=== PATIENT | female | born 1935 | race African-American/Black ===

== ENCOUNTER 2018-05-03 05:34 | Inpatient (IN) | payer OTHER ==
[~2018-05-03] VITALS: Ht 167.6 cm; Wt 70.8 kg
--- NOTE | 2018-05-03 05:36 | ED DYSPNEA/ASTHMA COMPLAINT ---
History of Present Illness General Chief Complaint: Dyspnea (COPD, CHF, Other) Stated Complaint: DYSPNEA Source: patient Exam Limitations: no limitations Vital Signs & Intake/Output Vital Signs & Intake/Output Vital Signs Date Time Temp Pulse Resp B/P B/P Pulse O2 O2 Flow FiO2 Mean Ox Delivery Rate 05/03 1108 Nasal 1.0L Cannula 05/03 926 95 Nasal 1.0L Cannula 05/03 0926 97.9 66 18 110/74 95 Nasal 1.0L Cannula 05/03 0839 97.4 64 18 121/75 95 Nasal 1.0L Cannula 05/03 0601 97 05/03 0555 96 05/03 0545 96 Room Air 05/03 0540 97.6 65 22 139/83 96 Room Air Allergies Coded Allergies: Penicillins (HIVES PER PT 05/03/18) Triage Nurses Notes Reviewed? yes Onset: Gradual Duration: hour(s): Timing: recent history Severity: moderate Activities at Onset: rest, sleep Prior Episodes/Possible Cause: occasional episodes Associated Symptoms: cough, wheezing HPI: 82-year-old woman history of COPD presents with coughing wheezing and dyspnea for the past 1-2 days. She states that she states saw her PMD who started her on steroid yesterday. However, during the day she continued to have dyspnea and shortness of breath. She notes that her cough is productive of sputum. She is unable to ambulate at home without wheezing. Her pmd started her on steroids yesterday. She has no chest pain, dizziness, diaphresis. 911 called. She felt better after a neb. (Lizeth ROSA,Sarthak Appiah) Past History Travel History Traveled to [place] past 21 day No Medical History Any Pertinent Medical History? see below for history Cardiovascular: hypertension Respiratory: asthma, COPD Surgical History Surgical History: unobtainable Family History Hx Contributory? No (Lizeth ROSA,Sarthak Appiah) Review of Systems Review of Systems Constitutional: Reports: no symptoms. EENTM: Reports: no symptoms. Respiratory: Reports: no symptoms. Cardiovascular: Reports: no symptoms. GI: Reports: no symptoms. Genitourinary: Reports: no symptoms. Musculoskeletal: Reports: no symptoms. Skin: Reports: no symptoms. Neurological/Psychological: Reports: no symptoms. Hematologic/Endocrine: Reports: no symptoms. Immunologic/Allergic: Reports: no symptoms. All Other Systems: Reviewed and Negative (Lizeth ROSA,Sarthak Appiah) Physical Exam Physical Exam General Appearance: moderate distress Head: atraumatic, normal appearance Eyes: Bilateral: normal appearance. Ears, Nose, Throat: normal pharynx, normal ENT inspection Neck: normal inspection, supple, full range of motion Respiratory: accessory muscle use, wheezing, respiratory distress Cardiovascular: regular rate/rhythm Gastrointestinal: normal bowel sounds, soft, non-tender, no organomegaly Extremities: normal inspection, normal capillary refill, normal range of motion, no edema Neurologic/Psych: no motor/sensory deficits, awake, alert, oriented x 3 Skin: intact, normal color, warm/dry Core Measures ACS in differential dx? No CVA/TIA Diagnosis No Sepsis Present: No Sepsis Focused Exam Completed? No (Lizeth ROSA,Sarthak Appiah) Progress Differential Diagnosis: asthma, AMI, bronchitis, costochondritis, CHF Plan of Care: Orders Procedure Date/time Status CBC WITHOUT DIFFERENTIAL 05/04 600 Active BASIC ELECTROLYTES PLUS BUN&CR 05/04 600 Active Regular Diet 05/03 B Active RT: Evaluation 05/03 1059 Active Pathway - chart 05/03 926 Active Code Status 05/03 09 Active Weight 05/03 0924 Complete Vital Signs 05/03 09 Active Teach/Educate 05/03 09 Active Pain Treatment and Response 05/03 09 Active Nutritional Intake, Monitor 05/03 09 Active Isolation 05/03 0924 Active Intake & Output 05/03 0924 Active Patient Care Conference 05/03 0924 Active Activity/Ambulation 05/03 0924 Active Patient Data 05/03 0753 Active OXYGEN SETUP (GEN) 05/03 730 Active Saline Lock 05/03 730 Active Admit to inpatient 05/03 07 Active Vital Signs 05/03 730 Active Activity/Ambulation 05/03 07 Active Code Status 05/03 07 Complete Intake & Output 05/03 0541 Active BLOOD CULTURE 05/03 0540 Active TROPONIN LEVEL 05/03 05 Complete LIPASE 05/03 536 Complete HEPATIC FUNCTION PANEL 05/03 536 Complete D-DIMER 05/03 05 Complete CBC WITHOUT DIFFERENTIAL 05/03 536 Complete BASIC METABOLIC PANEL 05/03 536 Complete AMYLASE 05/03 05 Complete EKG 05/03 05 Active TRC EVALUATION (GEN) 05/03 UNK Complete THERAPIST ORDERS 05/03 UNK Complete OXYGEN SETUP (GEN) 05/03 UNK Complete VTE Mechanical Prophylaxis 05/03 UNK Active Current Medications Sig/Gaby Start time Last Medication Dose Stop Time Status Admin Azithromycin 500 MG DAILY 05/04 900 AC (Zithromax) 05/05 959 Sodium Chloride 250 ML (Normal Saline 0.9%) Methylprednisolone 40 MG Q8 05/04 0600 AC (Solumedrol) Heparin Sodium 5,000 UNIT Q8 05/03 1400 AC (Porcine) Albuterol Sulfate 3 ML EVERY 4 HRS/AWAKE 05/03 1200 AC 05/03 (Proventil) 1107 Ipratropium [place] 2.5 ML EVERY 4 HRS/AWAKE 05/03 1200 AC 05/03 (Atrovent) 1107 Acetaminophen 650 MG Q8P PRN 05/03 0930 AC (Tylenol) Laboratory Tests 05/03/18551: Anion Gap 13, Estimated GFR 43 L, BUN/Creatinine Ratio 20.8, Glucose 104 H, Calcium 10.3 H, Total Bilirubin 0.3, Direct Bilirubin 0.2, AST 25, ALT 26, Alkaline Phosphatase 88, Troponin I < 0.01, Total Protein 7.2, Albumin 4.1, Amylase 82, Lipase 35, D-Dimer High Sensitivty 251 H, CBC w Diff NO MAN DIFF REQ, RBC 4.03 L, MCV 93.7, MCH 31.0, MCHC 33.0, RDW 14.7 H, MPV 9.2, Gran % 54.7, Lymphocytes % 27.5, Monocytes % 10.7 H, Eosinophils % 6.7 H, Basophils % 0.4, Absolute Granulocytes 2.2, Absolute Lymphocytes 1.1 L, Absolute Monocytes 0.4, Absolute Eosinophils 0.3, Absolute Basophils 0 Microbiology 05/03 552 BLOOD: Blood Culture - RECD 05/03 545 BLOOD: Blood Culture - RECD Diagnostic Imaging: Viewed by Me: Radiology Read. Discussed w/RAD: Radiology Read. CXR Impression: PATIENT: REJI HUGO PRESENT AGE: 82 PATIENT ACCOUNT NO: [id number] : 37 LOCATION: [facility] ORDERING PHYSICIAN: Sarthak Stanley MD SERVICE DATE: 05/03/18 EXAM TYPE: RAD - XRY- PORTABLE CHEST XRAY EXAMINATION: XR PORTABLE CHEST CLINICAL INFORMATION: Chest pain COMPARISON: None TECHNIQUE: Portable frontal view of the chest was obtained. 5:26 AM FINDINGS: Lungs are clear. No pulmonary vascular congestion. There is no pleural effusion. The heart size is normal. The cardiac and mediastinal contours are normal. There are calcifications of the thoracic aorta. There are multilevel degenerative changes of dorsal spine. IMPRESSION: Unremarkable examination. DICTATED BY: Ciro Ferrari MD DATE/TIME DICTATED:551 DRILLING MACHINE RUNNER:DRAGAN DATE/TIME TRANSCRIBED:05/03/18551 CONFIDENTIAL, DO NOT COPY WITHOUT APPROPRIATE AUTHORIZATION. <Electronically signed in Other Vendor System> SIGNED BY: Ciro Ferrari MD 05/03/18 0556 Initial ED EKG: normal axis, normal intervals, normal p-waves, normal QRS complex, normal sinus rhythm Hand-Off Endorsed To: Harish Weber MD Endorsed Time: 07 Pending: other (hospitalist) (Sarthak Stanley MD) Departure Departure Disposition: STILL A PATIENT Condition: Stable Clinical Impression Primary Impression: COPD exacerbation Departure Forms: Customer Survey General Discharge Information Admission Note Documentation of Exam: Documentation of any treatments & extenuating circumstances including Concerns Regarding Discharge (functional status, medication knowledge or non-compliance, living conditions, etc.) that warrant an admission rather than observation: pt presented with tachypnea, dyspnea at rest, now improved after low dose continuous nebs and mag sulfate. pt merits nebs, steroids, iv abx. (Sarthak Stanley MD) Admission Note Spoke With: Kayden Thapa MD Documentation of Exam: Documentation of any treatments & extenuating circumstances including Concerns Regarding Discharge (functional status, medication knowledge or non-compliance, living conditions, etc.) that warrant an admission rather than observation: (Harish Weber MD) Critical Care Note Critical Care Note Critical Care Time: 75-104 min (Sarthak Stanley MD)
--- NOTE | 2018-05-03 05:56 | RADIOLOGY REPORT ---
EXAMINATION: XR PORTABLE CHEST CLINICAL INFORMATION: Chest pain COMPARISON: None TECHNIQUE: Portable frontal view of the chest was obtained. 5:26 AM FINDINGS: Lungs are clear. No pulmonary vascular congestion. There is no pleural effusion. The heart size is normal. The cardiac and mediastinal contours are normal. There are calcifications of the thoracic aorta. There are multilevel degenerative changes of dorsal spine. IMPRESSION: Unremarkable examination.
[2018-05-03 06:06] LABS: ABSOLUTE BASOPHIL COUNT 0 /CUMM (0.0-0.2); ABSOLUTE EOSINOPHIL COUNT 0.3 /CUMM (0.0-0.7); ABSOLUTE GRANULOCYTE CT 2.2 /CUMM (1.4-6.5); ABSOLUTE LYMPH COUNT 1.1 /CUMM (1.2-3.4); ABSOLUTE MONOCYTE COUNT 0.4 /CUMM (0.10-0.60); BASOPHIL % 0.4 % (0.0-2.0); EOSINOPHIL % 6.7 % (0-5); GRANULOCYTE % 54.7 % (42.2-75.2); HEMATOCRIT 37.8 % (37-47); MEAN CORPUSCULAR VOLUME 93.7 FL (81.0-99.0); MEAN PLATELET VOLUME 9.2 FL (7.4-10.4); PLATELET COUNT 198 /CUMM (130-400); RBC DISTRIBUTION WIDTH 14.7 % (11.5-14.5); RED BLOOD CELL CT 4.03 /CUMM (4.20-5.40); WHITE BLOOD CELL COUNT 4.1 /CUMM (4.8-10.8)
--- NOTE | 2018-05-03 08:34 | History & Physical ---
Fide Tee 05/03/18 0833: General Information and HPI MD Statement: I have seen and personally examined REJI HUGO and documented this H&P. The patient is a 82 year old F who presented with a patient stated chief complaint of [difficulty breathing]. Source of Information: patient Exam Limitations: no limitations History of Present Illness: Patient is a 82-year-old female, current smoker, with past medical history of hypertension, asthma, COPD, kidney disease?, came in with chief complaint of difficulty breathing. Patient states that her asthma has been acting up all week, and it got particularly worse on 05/01 when she saw her primary care physician and was given by mouth prednisone and azithromycin. Patient states that while she was on treatment, her difficulty breathing worsened, and when she woke up on 05/03/2018, it was very hard for her to catch her breath and stated that she felt she couldn't do anything. Patient reports that she's been using her nebulizer and inhalers, albuterol and Advair, more frequently but there was no relief. Patient also mentioned that last month she had sinus infection for which she was given Bactrim. Although her sinus infection improved, but she states that her cough never went away. Her cough is dry with intermittently producing whitish sputum. Patient denies any fever/chills, sick contacts at home, chest pain, palpitations , burning micturition. Patient also states that she regularly sees a portfolio management marketing for bradycardia, but could not remember the name, and was last seen last month. Patient lives at home with her granddaughter, and is independent in her daily activities. In the ER, patient was given 1 dose of Solu-Medrol 125 mg, plus ceftriaxone and azithromycin. Of note patient is allergic to penicillin but she tolerated ceftriaxone well. Patient smokes about 2 cigarettes per day, she cut down from 4 cigarettes per day 2 weeks ago. Allergies/Medications Allergies: Coded Allergies: Penicillins (HIVES PER PT 05/03/18) Compliance With Home Meds: GOOD Past History Travel History Traveled to [place] past 21 day No Medical History Cardiovascular: hypertension Respiratory: asthma, COPD Renal: KIDNEY DISEASE Surgical History Surgical History: unobtainable Past Family/Social History Psychosocial History Where do you live? Home Who Do You Live With? grand daughter Review of Systems Review of Systems Constitutional: Reports: see HPI. Exam & Diagnostic Data Last 24 Hrs of Vital Signs/I&O Vital Signs Date Time Temp Pulse Resp B/P B/P Pulse O2 O2 Flow FiO2 Mean Ox Delivery Rate 05/03 926 95 Nasal 1.0L Cannula 05/03 926 97.9 66 18 110/74 95 Nasal 1.0L Cannula 05/03 0839 97.4 64 18 121/75 95 Nasal 1.0L Cannula 05/03 0601 97 05/03 0555 96 05/03 0545 96 Room Air 05/03 0540 97.6 65 22 139/83 96 Room Air Intake & Output 05/03 1600 05/03 0800 05/03 0000 Intake Total 350 Output Total Balance 350 Intake, IV 350 Patient 70.76 kg 61.235 kg Weight Weight Bed scale Reported by Patient Measurement Method Physical Exam General Appearance Alert, Oriented X3, Cooperative Skin No Rashes, No Breakdown HEENT Atraumatic, PERRLA, EOMI Neck Supple, No JVD Cardiovascular Regular Rate, Normal S1, Normal S2 Lungs coarse breath sounds b/l Abdomen Normal Bowel Sounds, Soft, No Tenderness Neurological Normal Speech, Normal Tone Extremities No Cyanosis, No Edema Vascular Normal Pulses Last 24 Hrs of Labs/Kel: Laboratory Tests 05/03/18 0552: Anion Gap 13, Estimated GFR 43 L, BUN/Creatinine Ratio 20.8, Glucose 104 H, Calcium 10.3 H, Total Bilirubin 0.3, Direct Bilirubin 0.2, AST 25, ALT 26, Alkaline Phosphatase 88, Troponin I < 0.01, Total Protein 7.2, Albumin 4.1, Amylase 82, Lipase 35, D-Dimer High Sensitivty 251 H, CBC w Diff NO MAN DIFF REQ, RBC 4.03 L, MCV 93.7, MCH 31.0, MCHC 33.0, RDW 14.7 H, MPV 9.2, Gran % 54.7, Lymphocytes % 27.5, Monocytes % 10.7 H, Eosinophils % 6.7 H, Basophils % 0.4, Absolute Granulocytes 2.2, Absolute Lymphocytes 1.1 L, Absolute Monocytes 0.4, Absolute Eosinophils 0.3, Absolute Basophils 0 Microbiology 05/03 552 BLOOD: Blood Culture - RECD 05/03 545 BLOOD: Blood Culture - RECD Diagnostic Data EKG Results Normal sinus rhythm, heart rate 78, QTC 447, no ST changes. CXR Results Clear Assessment/Plan Assessment: Patient is a 82-year-old female, current smoker past medical history of COPD, asthma, hypertension who came with a chief complaint of difficulty breathing. Her symptoms are most likely due to her asthma/COPD exacerbation, patient received Solu-Medrol, ceftriaxone,, azithromycin, and nebulization treatment in ER and she feels much better. She does not have any fevers. Vitals, labs, imaging, as stated above. Assessment and plan Will monitor the patient on general medicine floor, continue her on IV Solu- Medrol 40 q6 from tomorrow, will continue azithromycin to complete a total of 5 days, TRC nebs as needed, albuterol and Advair inhalers as per patient home regimen, will send sputum culture, will continue rest of her home meds including hydrochlorothiazide and losartan, DVT prophylaxis Alps and subcutaneous heparin, will recheck CBC and BP in a.m., patient is DNR/DNI. As Ranked By This Provider Problem List: 1. COPD exacerbation Core Measures/Misc (07/14) Acute Coronary Syndrome ACS Diagnosis: No Congestive Heart Failure Congestive Heart Failure Diagnosis No Cerebrovascular Accident CVA/TIA Diagnosis: No VTE (View Protocol) VTE Risk Factors Age>40 No Mechanical VTE Prophylaxis d/t N/A MechProphylax Ordered No VTE Pharm Prophylaxis d/t NA PharmProphylax ordered Sepsis (View protocol) Sepsis Present: No If YES complete Sepsis Event Note If YES complete Sepsis Event Note Kayden Thapa MD 05/03/18 9260: General Information and HPI Allergies/Medications Home Med list Albuterol Sulfate 2.5 MG/3 ML (0.083 %) VIAL.NEB 1 Vial INH/CITLALI Q4P PRN sob ( Reported) Fluticasone/Salmeterol (Advair 500-50 Diskus) 500 MCG-50 MCG/DOSE BLST.W.DEV 1 PUF INH BID sob (Reported) Hydrochlorothiazide 25 MG TABLET 1 TAB PO DAILY htn (Reported) Valsartan 160 MG TABLET 1 TAB PO DAILY htn (Reported) Core Measures/Misc (07/14) Sepsis (View protocol) If YES complete Sepsis Event Note If YES complete Sepsis Event Note Attending MD Review Statement Attending Statement Attending MD Statement: examined this patient, discuss w/resident/PA/MIDDLE SCHOOL READING TEACHER, agreed w/resident/PA/MIDDLE SCHOOL READING TEACHER, reviewed EMR data (avail) Attending Assessment/Plan: 82F PMH HTN, COPD with 3 days of productive cough with yellow sputum, SOB, and wheezing, started on Prednisone as outpatient with no improvement. No recent travel or sick contacts. Denies fever, chills, sore throat, chest pain, palpitations, lightheadedness, abdominal pain, diarrhea, dysuria. No improvement with home nebulizer. 1. COPD exacerbation 2. Acute bronchitis Plan - Admit to general medicine - IV Solumedrol - Azithromycin - Sputum culture - Nebulizer treatments - Continue home medications - DVT PPx
[2018-05-03 09:26] VITALS: BP 110/74
[2018-05-03] MEDS ORDERED: HYDROCHLOROTHIA25 M1 PO (14:17)
[2018-05-03] MEDS ORDERED: ALBUTEROL2.5 MG/3 M INH/SOL (14:17)
[2018-05-03] MEDS ORDERED: ADVAIR 500-501 EACH INH (14:17)
[2018-05-03] MEDS ORDERED: VALSARTAN160 M1 PO (14:18)
[2018-05-03 14:22] VITALS: BP 104/72
[2018-05-03 15:58] VITALS: BP 106/64
--- NOTE | 2018-05-03 17:41 | Admission Certification ---
Admission Certification Certification Statement - As attending physician, I certify that at the time of - admission, based on clinical presentation, severity of - symptoms, need for further diagnostic testing and - therapeutic interventions, and risk of adverse outcomes - without in-hospital treatment, in my clinical assessment, - this patient requires an acute hospital stay for a minimum - of two nights or longer. I have also considered psychsocial - factors such as support system, advanced age, financial - issues, cognitive issues, and failed out-patient treatments, - past re-admission history, safety of patient, and lack of - compliance as applicable. Specific rationale supporting this admission is: COPD exacerbation failing outpatient steroids
[2018-05-03 21:30] VITALS: BP 122/71
[2018-05-04 06:22] VITALS: BP 104/68
--- NOTE | 2018-05-04 09:00 | PN- Housestaff ---
MinayaGarima 05/04/18 0859: Subjective Follow-up For: shortness of breath Complaints: cough Subjective: Patient was seen and examined in sitting chair. Patient is c/o a nagging cough, she has been experiencing for quite some time, states one of her doctors gave her something that worked really good, but cannot recall the name. She states her breathing is improved, and is feeling better. Was prescribed Azithromycin and Prednisone by PCP Dr. Jolly on 05/01/18, patient states she did not take any dose of the prescribed medications. States her last cigarette was about a week ago, but is working to quit smoking Review of Systems Constitutional: Denies: chills, diaphoresis, fever. Cardiovascular: Denies: chest pain, palpitations. Respiratory: Reports: cough, short of breath. Gastrointestinal: Denies: abdominal pain, constipation, diarrhea, nausea, vomiting. Objective Last 24 Hrs of Vital Signs/I&O Vital Signs Date Time Temp Pulse Resp B/P B/P Pulse O2 O2 Flow FiO2 Mean Ox Delivery Rate 05/04 0820 99 Nasal 1.0L Cannula 05/04 0622 97.8 73 20 104/68 98 05/04 0521 97 Nasal 1.0L Cannula 05/04 0000 Nasal 1.0L Cannula 05/03 2130 97.1 64 20 122/71 100 05/03 1951 96 Nasal 1.0L Cannula 05/03 1704 98 Nasal 1.0L Cannula 05/03 1600 95 Nasal 1.0L Cannula 05/03 1558 78 106/64 95 Nasal 1.0L Cannula 05/03 1557 78 106/64 05/03 1422 97.9 75 22 104/72 95 Nasal 1.0L Cannula 05/03 1108 Nasal 1.0L Cannula 05/03 0926 95 Nasal 1.0L Cannula 05/03 0926 97.9 66 18 110/74 95 Nasal 1.0L Cannula Physical Exam General Appearance: Alert, Oriented X3, Cooperative Skin: No Rashes HEENT: Atraumatic, PERRLA, EOMI Neck: Supple, No LAD Cardiovascular: Regular Rate, Normal S1, Normal S2 Lungs: Coarse lung sounds, Bilateral wheezing appreciated worse in Left lung > right lung Abdomen: Normal Bowel Sounds, Soft, No Tenderness Extremities: No Cyanosis, No Edema, Normal Pulses Assessment/Plan Assessment: Patient is 82yoF who is a current smoker with a PMHx significant for Asthma, COPD, HTN, who is presented to [facility] with difficulty breathing. Patient has been experiencing problems with her breathing and went to see PCP ( Dr. Jolly) on 05/01/18 and was given Prednisone and Azithromycin, both of which the patient did not take. Patients symptoms worsened on 05/03/18 in the AM thus prompting her to visit the ED. Problem List: 1. Acute COPD Exacerbation 2. Bronchitis 3. Hypertension #Acute COPD exacerbation Current smoker, history of Asthma and COPD. Plan: - IV Solumedrol 40mg BID - Nebulizer Treatment #Bronchitis CXR on 05/03/18 Negative. Plan: -Azithromycin day 10/30 #Hypertension plan: Losartan 50mg Hydrocholorothiazide 25mg DVT PPx: Heparin Diet: Regular Code: DNR/DNI Problem List: 1. COPD exacerbation Pain Ratin Pain Location: n/a Pain Goal: Remain pain free Pain Plan: n/a Tomorrow's Labs & Rationales: none DVT/Prophylaxis: pharmacological (Heparin) Kayden Thapa MD 05/04/18 1456: Attending MD Review Statement Attending Statement Attending MD Statement: examined this patient, discuss w/resident/PA/SANDING MACHINE OPERATOR, agreed w/resident/PA/SANDING MACHINE OPERATOR, reviewed EMR data (avail) Attending Assessment/Plan: 82F PMH HTN, COPD with 3 days of productive cough with yellow sputum, SOB, and wheezing, started on Prednisone as outpatient with no improvement. No recent travel or sick contacts. Denies fever, chills, sore throat, chest pain, palpitations, lightheadedness, abdominal pain, diarrhea, dysuria. No improvement with home nebulizer. 1. COPD exacerbation 2. Acute bronchitis Plan - Admit to general medicine - IV Solumedrol - Azithromycin - Sputum culture - Nebulizer treatments - Continue home medications - DVT PPx
[2018-05-04 09:13] LABS: ABSOLUTE BASOPHIL COUNT 0 /CUMM (0.0-0.2); ABSOLUTE EOSINOPHIL COUNT 0.1 /CUMM (0.0-0.7); ABSOLUTE MONOCYTE COUNT 0.3 /CUMM (0.10-0.60); MEAN PLATELET VOLUME 10.4 FL (7.4-10.4)
[2018-05-04 09:24] LABS: ABSOLUTE LYMPH COUNT 0.6 /CUMM (1.2-3.4); BASOPHIL % 0.3 % (0.0-2.0); EOSINOPHIL % 1.3 % (0-5); HEMATOCRIT 34.6 % (37-47); MEAN CORPUSCULAR HGB 31.2 PG (27.0-31.0); MEAN CORPUSCULAR HGB CONC 33.2 G/DL (33.0-37.0); MEAN CORPUSCULAR VOLUME 93.9 FL (81.0-99.0); PLATELET COUNT 163 /CUMM (130-400); RBC DISTRIBUTION WIDTH 15.1 % (11.5-14.5); RED BLOOD CELL CT 3.68 /CUMM (4.20-5.40)
[2018-05-04 09:25] LABS: GRANULOCYTE % 83.1 % (42.2-75.2)
[2018-05-04 14:19] VITALS: BP 108/72
[2018-05-04 20:52] VITALS: BP 127/72
[2018-05-05 06:51] VITALS: BP 122/69
--- NOTE | 2018-05-05 07:07 | PN- Housestaff ---
See Addendum Subjective Follow-up For: Shortness of breath Subjective: Patient seen and examined at bedside. No acute events overnight. Afebrile. Patient is complaining of cough dry, nagging cough, says she is unable to produce anything. She had received Robitussin this morning states it has helped. Patient is asking when she can go home. States she is feeling much better than the state she had came in. No breathing treatments so far this morning. Review of Systems Constitutional: Denies: chills, diaphoresis, fever. Cardiovascular: Denies: chest pain, palpitations. Respiratory: Reports: cough. Denies: hemoptysis, short of breath, sputum production. Gastrointestinal: Denies: abdominal pain, changes in stool. Objective Last 24 Hrs of Vital Signs/I&O Vital Signs Date Time Temp Pulse Resp B/P B/P Pulse O2 O2 Flow FiO2 Mean Ox Delivery Rate 05/05 0651 97.8 53 18 122/69 97 / 0000 97 Room Air 05/04 2052 98.1 53 18 127/72 97 05/04 2041 95 Room Air / 1740 95 Room Air /08 1419 98.3 66 20 108/72 98 Room Air / 1200 94 Room Air / 0922 73 120/78 /08 0820 99 Nasal 1.0L Cannula 05/04 0800 Room Air Room Air Intake & Output 05/05 0800 / 0000 08 1600 Intake Total 240 510 310 Output Total 300 Balance 240 510 10 Intake, IV 10 10 Intake, Oral 240 500 300 Number 0 0 Bowel Movements Output, Urine 300 Physical Exam General Appearance: Alert, Oriented X3, Cooperative Skin: No Rashes HEENT: Atraumatic, EOMI Neck: Supple, No LAD Cardiovascular: Regular Rate, Normal S1, Normal S2 Lungs: Normal Air Movement, Coarse bronchial sounds bilat. Wheezing bilat. Abdomen: Normal Bowel Sounds, Soft, No Tenderness Assessment/Plan Assessment: Patient is 82yoF who is a current smoker with a PMHx significant for Asthma, COPD, HTN, who is presented to [facility] with difficulty breathing. Patient has been experiencing problems with her breathing and went to see PCP ( Dr. Jolly) on 05/01/18 and was given Prednisone and Azithromycin, both of which the patient did not take. Patients symptoms worsened on 05/03/18 in the AM thus prompting her to visit the ED. Problem List: 1. Acute COPD Exacerbation 2. Bronchitis 3. Hypertension #Acute COPD exacerbation Current smoker, history of Asthma and COPD. Plan: - Prednisone 40mg - Nebulizer Treatment - Ambulatory Pulse oxygen on RA 96% #Bronchitis CXR on 05/03/18 Negative. Plan: -Azithromycin day 2/5 #Hypertension plan: Losartan 50mg Hydrocholorothiazide 25mg DVT PPx: Heparin Diet: Regular Code: DNR/DNI Plan to discharge today with Prednisone Taper and Azithromycin for 3 days. Problem List: 1. COPD exacerbation Pain Ratin Pain Location: n/a Pain Goal: Remain pain free Pain Plan: n/a Tomorrow's Labs & Rationales: none
[2018-05-05 08:53] VITALS: BP 130/88
[2018-05-05] MEDS ORDERED: PREDNISONE10 M2 PO ×2 (10:41→11:18)
[2018-05-05] MEDS ORDERED: AZITHROMYCIN250 M1 PO ×2 (10:41→11:18)
--- NOTE | 2018-05-05 10:42 | Patient Discharge Instructions ---
Discharge Instructions General Discharge Information You were seen/treated for: COPD exacerbation Watch for these problems: Fever, chest pain, shortness of breath Special Instructions: Please take all medications as directed. Please follow-up with primary care. Diet Continue normal diet: Yes Activity Full Activity/No Limits: Yes Acute Coronary Syndrome Inclusion Criteria At DC or during hospital stay patient has or had the following: ACS DIAGNOSIS No Discharge Core Measures Meds if any: Prescribed or Continued at Discharge Meds if any: NOT Prescribed or Continued at Discharge Congestive Heart Failure Inclusion Criteria At DC or during hospital stay patient has or had the following: CHF DIAGNOSIS No Discharge Core Measures Meds if any: Prescribed or Continued at Discharge Meds if any: NOT Prescribed or Continued at Discharge Cerebrovascular accident Inclusion Criteria At DC or during hospital stay patient has or had the following: CVA/TIA Diagnosis No Discharge Core Measures Meds if any: Prescribed or Continued at Discharge Meds if any: NOT Prescribed or Continued at Discharge Venous thromboembolism Inclusion Criteria VTE Diagnosis No VTE Type NONE VTE Confirmed by (Test) NONE Discharge Core Measures - Per Current guidelines, there needs to be overlap - treatment for the first 5 days of Warfarin therapy. - If discharged on Warfarin prior to 5 days of - overlap therapy, the patient will need to be - assessed for post discharge needs including - *Post discharge parental anticoagulation - *Warfarin and/or parental anticoagulation education - *Follow up date to check INR post discharge At least 5 days overlap therapy as Inpatient No Meds if any: Prescribed or Continued at Discharge Note: Overlap Therapy is Warfarin and Anticoagulant Meds if any: NOT Prescribed or Continued at Discharge
== END 2018-05-05 13:10 | DRG 192 ==
LOC: ERH 05:34 → 2NB 08:11 → ERHI 08:11 → ENRESERV 08:33 → ENTRNSPT 08:55 → EDTRNSPT 09:01 → EDTRNSPTSTS 09:01 → 2NB 09:17 → CMPTRNSPT 09:34 → 2NB 05-05 10:03 → ENPENDDIS 05-05 10:47 → 2NB 05-05 13:10
PROVIDERS: Internal Medicine; Pediatrics
DX: J44.0 Chronic obstructive pulmonary disease with (acute) lower respiratory infection (principal); J20.9 Acute bronchitis, unspecified; J44.1 Chronic obstructive pulmonary disease with (acute) exacerbation; F17.200 Nicotine dependence, unspecified, uncomplicated; I10 Essential (primary) hypertension; Z66 Do not resuscitate
CPT/HCPCS: 2NBP; 36592; 71045; 82436; 87040; 87070; 87071; 93005; 93010; 96365; 96375; 99291; J0456; J0696; J1644; J2920; J2930; J7040